=== PATIENT | male | born 1955 | race Caucasian/White ===

== ENCOUNTER 2022-04-09 09:17 | Outpatient (REF) | payer MEDICARE, SELFPAY ==
[2022-04-09 11:38] LABS: MANUAL DIFF FLAG NO
[2022-04-09 12:00] LABS: Basophils Percent Auto 0.2 % (0-2); Eosinophils Percent Auto 0.1 % (0-4); Hematocrit 45.3 % (42.0-52.0); Hemoglobin 15.4 g/dl (14.0-18.0); Imm Gran Abs Auto 0.08 X10*3/uL (0.00-0.03); Imm Gran Pct Auto 0.5 % (0.0-0.4); Lymphocytes Absolute Auto 1.4 X10*3/uL (1.2-4.9); Mean Corpuscular Hemoglobin 29.2 pg (27.0-33.0); Mean Platelet Volume 10.3 fL (9.4-12.4); Monocytes Absolute Auto 0.4 X10*3/uL (0.1-1.2); Monocytes Percent Auto 2.6 % (2-11); Neutrophils Absolute Auto 15.1 x10*3/uL (2.0-8.3); Neutrophils Percent Auto 88.6 % (45-73); Platelet Count 389 X10*3/uL (160-400); Red Blood Count 5.27 X10*6/uL (4.60-5.80); Red Cell Distribution Width 12.5 % (11.0-16.0)
[2022-04-11 04:57] LABS: Lyme Abs Screen <0.90 index
== END 2022-04-09 09:18 | disposition home or self-care (01) ==
LOC: HO.HMGCLDS 09:17
PROVIDERS: PCP Family Medicine; Visit Provider Physician Assistant
DX: A69.20 Lyme disease, unspecified (principal)
CPT/HCPCS: 36415; 85025; 86617; 86618

== ENCOUNTER 2023-09-17 09:31 | Outpatient (REF) | payer OTHER, SELFPAY ==
[2023-09-17 11:57] LABS: Hematocrit 44.2 % (42.0-52.0); Hemoglobin 14.9 g/dl (14.0-18.0); Mean Corpuscular HGB Conc 33.7 g/dl (31.0-36.0); Mean Corpuscular Hemoglobin 29.1 pg (27.0-33.0); Mean Corpuscular Volume 86.3 fL (80.0-98.0); Mean Platelet Volume 10.3 fL (9.4-12.4); Platelet Count 352 X10*3/uL (160-400); Red Blood Count 5.12 X10*6/uL (4.60-5.80); Red Cell Distribution Width 12.3 % (11.0-16.0); White Blood Count 9.6 X10*3/uL (4.8-10.8)
[2023-09-17 12:08] LABS: Estimated Average Glucose 123 mg/dL; Hemoglobin A1c % 5.9 % (<6.0)
[2023-09-17 13:19] LABS: Creatinine Urine 229.76 mg/dL; Microalbum/Creatinine Ratio Ur 7.8 ug/mg cr (<30)
[2023-09-17 15:51] LABS: Alanine Aminotransferase 23 U/L (0-40); Albumin Level 4.2 g/dL (3.5-5.0); Alkaline Phosphatase 94 U/L (39-117); Anion Gap 13 (12-20); Aspartate Amino Transferase 17 U/L (5-37); Bilirubin Direct 0.3 mg/dL (0.0-0.5); Bilirubin Total 0.6 mg/dL (0.0-1.0); Blood Urea Nitrogen 16 mg/dL (9-16); Calcium 9.6 mg/dL (8.4-10.2); Carbon Dioxide 27 mmol/L (22-29); Chloride 102 mmol/L (96-108); Cholesterol 171 mg/dL (<200); Estimated Glomerular Filt Rate > 60; Glucose Random 113 mg/dL (60-115); HDL Cholesterol 38 mg/dL (>40); LDL Cholesterol Calculated 116 mg/dL (<100); Potassium 4.4 mmol/L (3.3-5.1); Sodium 138 mmol/L (135-145); Total Protein 7.8 g/dL (6.5-8.0); Triglycerides 87 mg/dL (<150)
[2023-09-17 16:09] LABS: Free T4 (Free Thyroxine) 0.92 ng/dL (0.71-1.85); Vitamin D 25-OH Total 38.8 ng/mL (>30)
== END 2023-09-17 09:32 | disposition home or self-care (01) ==
LOC: HO.HHCL 09:31
PROVIDERS: Visit Provider Family Medicine
DX: I10 Essential (primary) hypertension (principal)
CPT/HCPCS: 36415; 80048; 80061; 80076; 82043; 82306; 82570; 83036; 84439; 84443; 85027

== ENCOUNTER 2023-12-25 09:14 | Outpatient (REF) | payer OTHER, SELFPAY ==
--- NOTE | ~2023-12-25 | US_ITS ---
EXAMINATION: US RETROPERITONEAL LIMITED (AORTA) CLINICAL INFORMATION: Personal history of nicotine dependence. COMPARISON: None available. TECHNIQUE: Kumar-scale, color Doppler and spectral Doppler evaluation of the abdominal aorta. FINDINGS: The aorta is normal. The measurements of the aorta in maximum AP and transverse dimensions respectively are as follows: Proximal: 2.6 x 2.5 cm. Mid: 1.8 x 1.8 cm. Distal: 1.6 x 1.7 cm. PSV: 79 cm/s. The measurements of the common iliac arteries in maximum AP and TRV dimensions are as follows: Right: AP: 1.1 cm. TRV: 1.1 cm. Left: AP: 1.2 cm. TRV: 1.1 cm. US/US aorta IMPRESSION: Negative for abdominal aortic aneurysm.
== END 2023-12-25 09:15 | disposition home or self-care (01) ==
LOC: HO.US 09:14
PROVIDERS: PCP Family Medicine; Visit Provider Family Medicine
DX: Z13.6 Encounter for screening for cardiovascular disorders (principal); Z87.891 Personal history of nicotine dependence
CPT/HCPCS: 76775

== ENCOUNTER 2024-10-28 09:53 | Outpatient (REF) | payer MEDICARE, SELFPAY ==
--- NOTE | ~2024-10-28 | XR_ITS ---
EXAMINATION: Pre-MRI orbits. CLINICAL INDICATION: History of metal fragments in eyes. COMPARISON: None. FINDINGS: There are 3 disc images of the orbits revealing no radiopaque metallic foreign body in the orbits. The visualized maxillofacial, orbital and nasal bones appear unremarkable. XR/XR pre mri screening IMPRESSION: No radiopaque metallic foreign body seen in the orbits. Electronically signed by: Scot Mcgrath MD 10/28/2024 10:37 AM MIREYA
--- OUTSIDE RECORDS SUMMARY | 2024-10-28 11:43 | XMS_ITS | Encounter Summary ---
Author Organization [employer] Address [address] [facility] 7t [place] [address] Care Team Providers Care Taker Off Braker Machine Name Role Phone Quyen Morfin DO Primary Care Provider + [phone] Reason for Visit * Reason Onset Date Comments Appointment Request 10/21/2023 Encounter Details Date Type Department Care Team ([facility] st Contact Info) Description 10/21/2023 Telephone [facility] MEDICINE [address] [place], [place] [phone] Quyen Morfin DO [address] [place], [place] [phone] Appointment Request Social History Tobacco Use Types Packs/Day Years Used Date Smoking Tobacco: Former Cigarettes Passive Smoke Exposure: Past Smokeless Tobacco: Never Alcohol Use Standard Drinks/Week Comments Never 0 (1 standard drink = 0.6 oz pur e alcohol) Depression Answer Date Recorded Patient Health Questionnaire-9 Score 0 10/30/2022 Housing Stability Answer Date Recorded What is your housing situation today? I have van tapia 07/06/[address] you li ve. Do you have problems with any of the following? None of the above 07/06/2023 Food Insecurity Answer Date Recorded Within the past 12 months, y ou worried that your food would run out before you got money to buy more: Never True 07/06/2023 Within the past 12 months,th e food you bought just didn't last and you didn't have enough money to get more: Never True 06/2023 Transportation Answer Date Recorded In the past 12 months, has l ack of transportation kept you from medical appts, meetings, work or from getting things needed for daily living? No 07/06/2023 Utilities Answer Date Recorded In the past 12 months, has t he electric, gas, oil or water company threatened to shut off services in your home? No 07/06/2023 Depression Answer Date Recorded Patient Health Questionnaire-2 Score 0 10/30/2022 Sex and Gender Information Value Date Recorded Sex Assigned at Male 06/25/2022 10:18 AM EDT Legal Sex Male 10:18 AM EDT Gender Identity Male 06/25/2022 10:18 AM EDT Sexual Orientation Straight 06/25/2022 10 :18 AM EDT documented as of this encounter Miscellaneous Notes * Telephone Encounter - Harmeet Hermosillo - 10/21/2023 3:23 PM EST Tc from pt spouse requesting a physical appt with provider to be scheduled back to back upon provider advise. Please contact pt Spouse @ [phone] documented in this encounter Plan of Treatment Not on file documented as of this encounter Visit Diagnoses Not on filedocumented in this encounter Additional Health Concerns Assessment Noted Time PHQ-9 Depression Total Score: 0 10/31/19 23 9:09 AM EST documented as of this encounter Care Teams Taker Off Braker Machine Relationship Specialty Start Date End Date Quyen Morfin DO [address] [place] [address] PCP - General Family Medicine 02/28/22 documented as of this encounter
--- OUTSIDE RECORDS SUMMARY | 2024-10-28 11:43 | XMS_ITS | Encounter Summary ---
Author Organization [employer] Address [address] [place] [address] 7t [place] [address] Care Team Providers Care Charge Account Identification Clerk Name Role Phone Quyen Morfin DO Primary Care Provider [phone] Reason for Referral * Imaging (Routine) - Authorized Specialty Diagnoses / Procedures Referred By Contac t Referred To Contact Radiology Diagnoses Tinnitus of both ears Procedures Mr Brain w/ and w/o Contrast Quyen Morfin DO [address] [place] [address] Phone: tel: fax: [address] Phone: tel: fax: Referral ID Status Reason Start Date Expiration Date V isits Requested Visits Authorized [id number] Authorized 10/04/2024 10/04/2025 1 1 Encounter Details Date Type Department Care Team (Late st Contact Info) Description 10/04/2024 Orders Only [facility] MEDICINE [address] [place], [place] [phone] Quyen Morfin DO [address] [place], [place] [phone] Tinnitus of both ears (Primary Dx) Social History Tobacco Use Types Packs/Day Years Used Date Smoking Tobacco: Former Cigarettes Passive Smoke Exposure: Past Smokeless Tobacco: Never Alcohol Use Standard Drinks/Week Comments Never 0 (1 standard drink = 0.6 oz pur e alcohol) Depression Answer Date Recorded Patient Health Questionnaire-9 Score 0 09/15/2024 Patient Health Questionnaire-9 Score 0 09/15/2024 Last PHQ-9: Questionnaire Data Not on file 0 09/15/2024 Housing Stability Answer Date Recorded What is your housing situation today? I have van tapia 08/13/[address] you li ve. Do you have problems with any of the following? None of the above 08/13/2024 Food Insecurity Answer Date Recorded Within the past 12 months, y ou worried that your food would run out before you got money to buy more: Never True 08/13/2024 Within the past 12 months,th e food you bought just didn't last and you didn't have enough money to get more: Never True Transportation Answer Date Recorded In the past 12 months, has l ack of transportation kept you from medical appts, meetings, work or from getting things needed for daily living? No 08/13/2024 Utilities Answer Date Recorded In the past 12 months, has t he electric, gas, oil or water company threatened to shut off services in your home? No 08/13/2024 Depression Answer Date Recorded Patient Health Questionnaire-2 Score 0 09/15/2024 Internet Access Answer Date Recorded Internet Access Q1 Yes 08/13/2024 Internet Access Q2 Not on file 08/13/2024 Sex and Gender Information Value Date Recorded Sex Assigned at Male 06/25/2022 10:18 AM EDT Legal Sex Male 10:18 AM EDT Gender Identity Male 06/25/2022 10:18 AM EDT Sexual Orientation Straight 06/25/2022 10 :18 AM EDT documented as of this encounter Plan of Treatment Scheduled Orders Name Type Priority Associated Diagnoses Orde r Schedule Mr Brain w/ and w/o Contrast Imaging Routine Tinnitus of both ears Expected: 10/04/2024, Expires: 10/04/2025 documented as of this encounter Procedures Procedure Name Priority Date/Time Associated Diagnosis Comments XR PRE MRI SCREENING Routine 10/28/2024 10:25 AM EST documented in this encounter Results * XR PRE MRI SCREENING (10/28/2024 10:25 AM EST) Anatomical Region Laterality Modality Abdomen Radiographic Ree ging 10/28/2024 10:2 5 AM EST Narrative 10/28/2024 10:41 AM EST ? [facility] ?[address] ?[place] [address] ?XRay Report ? Signed ? Patient: Bryden,Ti ?MR#: [id number] ? : 1955 ?Acct:[id number] ? Age/Sex: 69 / M ?ADM Date: 10/28/24 ? Loc: HO.XRAY ? Attending Dr: Kevin Workman MD ? Ordering Physician: Kevin Workman MD ?? Date of Service: 10/28/24 ?? Procedure(s): XR pre mri screening ?? Accession Number(s): [id number] ? cc: Kevin Workman MD; Quyen Morfin DO ? EXAMINATION: Pre-MRI orbits. ? CLINICAL INDICATION: History of metal fragments in eyes. ? COMPARISON: None. ? FINDINGS: There are 3 disc images of the orbits revealing no radiopaque ?? metallic foreign body in the orbits. The visualized maxillofacial, ?? orbital and nasal bones appear unremarkable. ? XR/XR pre mri screening ?? IMPRESSION: No radiopaque metallic foreign body seen in the orbits. ? Electronically signed by: ??Scot Mcgrath MD ??10/28/2024 10:37 AM EST RP ? Dictated By: ?Scot Mcgrath MD ? Signed By: ?<Electronically signed by Scot Mcgrath MD in OV> ?10/28/24 1037 ? DD/ 1025 ? TD/TT: 10/28/24 1025 ? Duty Manager: MSM ? Procedure Note Rosibel Sargent - 10/28/[address] [address] XRay Report Signed Patient: Ti RamosMR#: [id number] : 7Acct:[id number] Age/Sex: 69 / MADM Date: 10/28/24 Loc: PHI Attending Dr: Kevin Workman MD Ordering Physician: Kevin Workman MD Date of Service: 10/28/24 Procedure(s): XR pre mri screening Accession Number(s): [id number] cc: Kevin Workman MD; Quyen Morfin DO EXAMINATION: Pre-MRI orbits. CLINICAL INDICATION: History of metal fragments in eyes. COMPARISON: None. FINDINGS: There are 3 disc images of the orbits revealing no radiopaque metallic foreign body in the orbits. The visualized maxillofacial, orbital and nasal bones appear unremarkable. XR/XR pre mri screening IMPRESSION: No radiopaque metallic foreign body seen in the orbits. Electronically signed by: Scot Mcgrath MD 10/28/2024 10:37 AM EST RP Dictated By: Scot Mcgrath MD Signed By: <Electronically signed by Scot Mcgrath MD in OV> 10/28/24 1037 DD/ 1025 TD/TT: 10/28/24 1025 Duty Manager: KENNA [facility] External Provider IMG XR PROCEDURES Edited Result - Final documented in this encounter Visit Diagnoses Diagnosis Tinnitus of both ears- Primary Unspecified tinnitus documented in this encounter Additional Health Concerns Assessment Noted Time PHQ-9 Depression Total Score: 0 09/15/19 25 9:23 AM EST documented as of this encounter Care Teams Charge Account Identification Clerk Relationship Specialty Start Date End Date Quyen Morfin DO [address] [place] [address] PCP - General Family Medicine 02/28/22 documented as of this encounter
--- OUTSIDE RECORDS SUMMARY | 2024-10-28 11:43 | XMS_ITS | Encounter Summary ---
Author Organization [employer] Address [address] [facility] 7t [place] [address] Care Team Providers Care Miter Cutter Name Role Phone Quyen Morfin DO Primary Care Provider + [phone] Reason for Visit * Reason Onset Date Comments Med Refill 08/05/2023 Encounter Details Date Type Department Care Team (Late st Contact Info) Description 08/05/2023 Telephone [facility] MEDICINE [address] [place] [address] Quyen Morfin DO [address] [place], [place] [phone] Med Refill Social History Tobacco Use Types Packs/Day Years [...] encounter Miscellaneous Notes * Telephone Encounter - Quyen Pinedo LPN - 08/05/2023 9:40 AM EST Medications were sent to [facility] on 07/29/23 #90 with 3 refills. * Telephone Encounter - Fady Blankenship - 08/05/2023 9:26 AM EST Tc from pt's spouse requesting medication refill for amLODIPine (Norvasc) 5 MG tablet, atenolol (Tenormin) 50 MG tablet, and hydroCHLOROthiazide (HYDRODiuril) 25 MG tablet. documented in this encounter Plan of Treatment Not on file documented as of this encounter Visit Diagnoses Not on filedocumented in this encounter Additional Health Concerns Assessment Noted Time PHQ-9 Depression Total Score: 0 10/31/19 23 9:09 AM EST documented as of this encounter Care Teams Miter Cutter Relationship Specialty Start Date End Date Quyen Morfin DO [address] [place] [address] PCP - General Family Medicine 02/28/22 documented as of this encounter
--- OUTSIDE RECORDS SUMMARY | 2024-10-28 11:43 | XMS_ITS | Clinical Summary ---
Author Organization [employer] Address [address] [facility] 7t [place] [address] Care Team Providers Care Card Clothier Name Role Phone Quyen Morfin DO Primary Care Provider + [phone] Allergies Active Allergy Reactions Criticality Noted Date Comments Lisinopril Cough 09/15/2024 Medications Nirmatrelvir&Ri tonavir 300/100 (Paxlovid, 300/100,) 20 x 150 MG & 10 x 100MG tablet therapy packIndications :Infection caused by 2019 Novel Coronavirus Take 3 tablets by mouth 2 times daily. Take 2 tabs (300mg of nirmatrelvir) and 1 tab (100mg of ritonavir) PO BID for 5 days. No renal failure. Possible medication interactions reviewed. You may start the atorvastatin 3 days after stopping the Paxlov 30 each 3 Active atorvastatin (Lipitor) 20 MG tablet TAKE 1 TABLET BY MOUTH DAILY 90 tablet 3 4 Active hydroCHLOROthia zide (HYDRODiuril) 25 MG tablet TAKE 1 TABLET BY MOUTH EVERY DAY 90 tablet 3 4 Active atenolol (Tenormin) 50 MG tablet TAKE 1 TABLET BY MOUTH EVERY DAY 90 tablet 3 4 Active amLODIPine (Norvasc) 5 MG tablet TAKE 1 TABLET BY MOUTH EVERY DAY 90 tablet 3 5 Active Active Problems Problem Noted Date Diagnosed Date History of COVID-19 09/05/2023 BMI 35.0-35.9,adult 10/30/2022 Pre-diabetes 10/30/2022 Assessment & Plan (12/13/2023 1:45 PM EDT): A1c 5.9% AUG 2023 -reviewed results with pt and -continue dietary changes for prevention of DM History of tobacco use 10/30/2022 Assessment & Plan (12/13/2023 1:46 PM EDT): quit > 40 years ago -re-referred for AAA screening Healthcare maintenance 10/30/2022 Assessment & Plan (12/13/2023 1:43 PM EDT): -s/p flu vaccine APR 2023 -he declines COVID vaccine -s/p RSV vaccine Apr 2023 -s/p Tdap MAY 2014 -s/p pneumovax MAY 2017 -s/p prevnar February 2022 -s/p zoster vaccine Jun 2017 -s/p shingrix JUL 2019 -he declines colonoscopy, cologuard negative Mar 2022 -STI/HIV screening negative Apr 2022 Hyperlipidemia 06/13/2012 Assessment & Plan (12/13/2023 1:44 PM EDT): LDL at goal AUG 2023 -cont lipitor nightly Essential hypertension 06/13/2012 Assessment & Plan (12/13/2023 1:44 PM EDT): BP controlled -cont HCTZ, amlodipine, and atenolol daily -Cr/GFR and microalbumin nml AUG 2023 -s/p optho eval FEB 2023 at [facility] for annual f/u, will get copy of eval as still not in chart -refer for EKG next visit* Psoriasis 06/13/2012 Resolved Problems Problem Noted Date Diagnosed Date Resolved Date Outbursts of anger 10/30/2022 4 Encounters Date Type Department Care Team Description 10/04/2024 Orders Only [facility] MEDICINE [address] [place] [phone] Quyen Morfin DO Tinnitus of both ears (Primary Dx) 09/22/2024 9:30 AM EST Clinical Support [facility] MEDICINE [address] [place] [address] Betty Fonseca, ADA Impacted cerumen of both ears 09/16/2024 Telephone [facility] [address] [place] [address] Quyen Morfin DO 09/15/2024 9:00 AM EST Office Visit [address] [address] Quyen Morfin DO Essential hypertension (Primary Dx); Other hyperlipidemia; Pre-diabetes; Bilateral impacted cerumen; Tinnitus of both ears; Decreased hearing of both ears; Healthcare maintenance 09/15/2024 Travel 09/07/[address] [address] Quyen Morfin DO 09/03/2024 Patient Outreach [address] [address] Quyen Morfin DO Pre-visit Planning (SDOH screening completed on 08/13/2024) 08/18/2024 Patient Outreach [facility] [address] [place] [phone] Quyen Morfin DO Pre-visit Planning (SDOH was completed on 08/13/2024) 08/13/2024 Patient Outreach [address] [address] Quyen Morfin DO Pre-visit Planning (SDOH screening negative and tobacco screening negative) 08/04/[address] [address] [place], [place] July08/04/[address] [address] Quyen Morfin DO Med Refill 08/03/[address] [address] Quyen Morfin DO from Last 3 Months Immunizations Name Administration Dates Next Due INFLUENZA VACCINE QUADRIVALE NT RECOMBINANT PRESERVATIVE FREE RIV4 04/27/2020 Influenza High-dose Quadriva lent Preservative Free 05/30/2022 Influenza Quadrivalent Adjuvanted 05/09/2023 Influenza injectable quadriv alent IIV4 with preservative 05/13/2018,05/14/2017,05/16/2015 Influenza injectable quadriv alent preservative free 05/10/2021,05/29/2016 Influenza, High Dose Seasona l, Preservative Free 06/01/2024 Influenza, IIV3, injectable 06/03/2014 Influenza, Split (incl. tyler fied surface antigen) 05/13/2013,06/13/2012 Pneumococcal Conjugate PCV 13 03/02/2022 Pneumococcal Polysaccharide PPSV23 06/24/2017 RSV Adjuvant 05/09/2023 Tdap 06/23/2014 Zoster, Recombinant 07/28/2019,05/18/2019 Zoster, live 07/04/2017 Family History Medical History Relation Name Comments Diabetes Brother 1 Diabetes Brother 2 Diabetes Father Breast cancer Mother Asthma Sister Relation Name Status Comments Brother 1 Brother 2 Alive Father Mother Sister Social History Tobacco Use Types Packs/Day Years Used Date Smoking Tobacco: Former Cigarettes Passive Smoke Exposure: Past Smokeless Tobacco: Never Tobacco Cessation:Counseling Given: Not Answered Alcohol Use Standard Drinks/Week Comments Never 0 [...] Orientation Straight 06/25/2022 10 :18 AM EDT Last Filed Vital Signs Vital Sign Reading Time Taken Comments Blood Pressure 134/70 09/15/2024 9:20 AM EST Pulse 82 09/15/2024 9:20 AM EST Temperature 36.2 ??C (97.1 ??F) 09/15/2024 9:20 AM ES T Respiratory Rate 20 09/15/2024 9:20 AM EST Oxygen Saturation 98% 12/12/2023 9:16 AM EDT Inhaled Oxygen Concentration - - Weight 113 kg (250 lb) 09/15/2024 9:20 AM EST Height 180.3 cm (5' 11 ) 09/15/2024 9:20 AM EST Body Mass Index 34.87 09/15/2024 9:20 AM EST Plan of Treatment Health Maintenance Due Date Last Done Comments CT Colonography 1955 Colonoscopy 1955 Colorectal Cancer Screening 1955 FIT DNA/Cologuard 1955 FIT 1955 FOBT 1955 Sigmoidoscopy 1955 Hepatitis C Screening 1975 DTaP/Tdap/Td Vaccines (2 - Td or Tdap) 06/23/2024 06/23/2014 SDOH Screening 08/13/2025 08/13/2024 Alcohol/Substance Use Screening 09/15/2025 09/15/2024 Depression Screening 09/15/2025 09/15/2024, 09/15/19 25 Diabetes: Hemoglobin A1C 09/15/2025 025, 09/17/2023, 04/03/2022 Tobacco Screening 09/15/2025 09/15/2024 Pneumococcal Vaccine: 50+ Years (3 of 3 - PCV20 or PCV21) 03/02/2027 03/02/2022, 06/24/2017 Lipid Panel 09/17/2028 09/17/2023, 08/0 04/2022, 03/20/2021 Zoster Vaccines Completed 07/28/2019, 04/27, 07/04/2017 RSV Patients and Patients Aged 60 years or older Completed 05/09/2023 COVID-19 Vaccine Completed 05/08/2024, 12/2021, 12/22/2021, Additional history exists Influenza Vaccine Completed 06/01/2024, , 05/30/2022, Additional history exists HIB Vaccines Aged Out No longer eligi ble based on patient's age to complete this topic HPV Vaccines Aged Out No longer eligi ble based on patient's age to complete this topic Hepatitis A Vaccines Aged Out No long er eligible based on patient's age to complete this topic Hepatitis B Vaccines Aged Out No long er eligible based on patient's age to complete this topic IPV Vaccines Aged Out No longer eligi ble based on patient's age to complete this topic Meningococcal Vaccine Aged Out No maday joseph eligible based on patient's age to complete this topic RSV under 20 months Aged Out No longe r eligible based on patient's age to complete this topic Rotavirus Vaccines Aged Out No longer eligible based on patient's age to complete this topic Procedures Procedure Name Priority Date/Time Associated Diagnosis Comments XR PRE MRI SCREENING Routine 10/28/2024 10:25 AM EST GA REMOVAL IMPACTED CERUMEN IRRIGATION/LVG UNILAT Routine 09/15/2024 10:09 AM EST Bilateral impacted cerumen POCT GLYCATED HEMOGLOBIN, TOTAL Routine 09/15/2024 9:28 AM EST Essential hypertension Pre-diabetes POCT GLUCOSE Routine 09/15/2024 9:27 AM EST Essential hypertension Pre-diabetes LIPID PANEL, STANDARD Routine 09/17/2023 9:33 AM EST Essential hypertension from Last 3 Months or Most Recently Relevant to Health Maintenance Results * XR PRE MRI SCREENING (10/28/2024 10:25 AM EST) Anatomical Region Laterality Modality Abdomen Radiographic Ree ging 10/28/2024 10:2 5 AM EST Narrative 10/28/2024 10:41 AM EST ? [facility] ?[address] ?[place] [address] ?XRay Report ? Signed ? Patient: Bryden,Ti ?MR#: [id number] ? : 1955 ?Acct:[id number] ? Age/Sex: 69 / M ?ADM Date: 10/28/24 ? Loc: HO.XRAY ? Attending Dr: Kevin Workman MD ? Ordering Physician: Kevin Workman MD ?? Date of Service: 10/28/24 ?? Procedure(s): XR pre mri screening ?? Accession Number(s): [id number] ? cc: Kevin Workman MD; Quyen Morfin [...] ? Signed By: ?<Electronically signed by Scot Earl Mcgrath MD in OV> ?10/28/24 1037 ? DD/ 1025 ? TD/TT: 10/28/24 1025 ? Banking Supervisor: MSM ? Procedure Note Rosibel Sargent - 10/28/[address] [address] XRay Report Signed Patient: Ti RamosMR#: [id number] : 7Acct:[id number] Age/Sex: 69 / MADM Date: 10/28/24 Loc: PHI Attending Dr: Kevin Workman MD Ordering Physician: Kevin Workman MD Date of Service: 10/28/24 Procedure(s): XR pre mri screening Accession Number(s): [id number] cc: Kevin Workman MD; Quyen Morfin DO [...] 10/28/24 1037 DD/ 1025 TD/TT: 10/28/24 1025 Banking Supervisor: KENNA [facility] External Provider IMG XR PROCEDURES Edited Result - Final * GA REMOVAL IMPACTED CERUMEN IRRIGATION/LVG UNILAT (09/15/2024 10:09 AM EST) Narrative Shoaib Epperson, ADA - 09/15/2024 10:09 AM EST Shoaib Epperson RN ? 10/05/2024 12:22 AM Ear Cerumen Removal Date/Time: 09/15/2024 10:09 AM Performed by: Shoaib Epperson RN Authorized by: Quyen Morfin DO ?? Consent: ??Consent obtained: ??Verbal ??Consent given by: ??Patient ??Risks, benefits, and alternatives were discussed: yes ?Risks discussed: ??Dizziness, bleeding, incomplete removal, pain and TM perforation Yoder protocol: ??Procedure explained and questions answered to patient or proxy's satisfaction: yes ?Patient identity confirmed: ??Verbally with patient Procedure details: ??Location: ??L ear and R ear ??Procedure type: irrigation ?Procedure outcomes: unable to remove cerumen ?? Post-procedure details: ??Inspection: ??Some cerumen remaining ??Hearing quality: ??Improved ??Procedure completion: ??Tolerated well, no immediate complications Quyen Morfin DO IN CLINIC/BEDSIDE ORDERABLES Final Result * (ABNORMAL) POCT HGB A1C (09/15/2024 9:28 AM EST) Hemoglobin A1C 6.2(A) 4.0 - 6.0 % QC Media Lot # [id number] Lot# Expiration Date Blood 09/15/2024 9:28 AM EST Quyen Navjot DO POINT OF CARE TEST ENTER/SOFIYA T ORDERABLES Final Result * POCT Glucose (09/15/2024 9:27 AM EST) Glucose Blood, POC 124 60 - 200 mg/dL QC Media Lot # [id number] Lot# Expiration Date Blood Capillary blood specimen / Unknown 09/15/2024 9:27 AM EST Quyen Morfin DO POINT OF CARE TEST ENTER/SOFIYA T ORDERABLES Final Result * (ABNORMAL) Lipid Panel, Standard (09/17/2023 9:33 AM EST) Triglycerides 87 <150 mg/dL [facility] Comment:Desirable Triglyceri de: less than 150 mg/dLBorderline High Triglyceride 150-199 mg/dLHigh Triglyceride: 200-499 mg/dLVery High Triglyceride: greater than or equal to 5OO mg/dL Cholesterol 171 <200 mg/dL [facility] Comment:Desirable Cholestero l: less than 200 mg/dLBorderline High Cholesterol: 200-239 mg/dLHigh Cholesterol: greater than 239 mg/dL LDL Cholesterol Calculated 116(H) <100 mg/dL [facility] Comment:Desirable LDL: less than 100 mg/dLNear Optimal/Above Optimal LDL: 110- 129 mg/dLBorderline High LDL: 130-159 mg/dLHigh LDL: 160-189 mg/dLVery High LDL: greater than or equal to 190 mg/dL HDL Cholesterol 38(L) >40 mg/dL [facility] Comment:Desirable HDL: great er than 40 mg/dL Note: This HDL assay may give artificially low results in patients with liver disease. Blood Venous blood specimen / Unknown 09/17/2023 9:33 AM EST 09/17/2023 11:27 AM EST Quyen Morfin DO LAB BLOOD ORDERABLES Final R esult [facility] [address] [place] [address] [phone] from Last 3 Months or Most Recently Relevant to Health Maintenance Insurance [employer] PPO Care Teams Card Clothier Relationship Specialty Start Date End Date Quyen Morfin DO [address] [place] [id number] PCP - General Family Medicine 02/28/22
== END 2024-10-28 09:54 | disposition home or self-care (01) ==
LOC: HO.XRAY 09:53
PROVIDERS: PCP Family Medicine; Visit Provider Radiology Diagnostic Radiology
DX: Z13.89 Encounter for screening for other disorder (principal)

== ENCOUNTER → 2024-10-30 09:05 | Outpatient (BNV) | payer MEDICARE, SELFPAY | PROVIDERS: PCP Family Medicine; Visit Provider Radiology Diagnostic Radiology | DX: H93.13 Tinnitus, bilateral (principal) | CPT/HCPCS: 70553 ==

== ENCOUNTER 2024-10-30 09:06 | Outpatient (REF) | payer MEDICARE, SELFPAY ==
--- NOTE | ~2024-10-30 | MR_ITS ---
EXAMINATION: MR BRAIN WITHOUT THEN WITH IV CONTRAST HISTORY: WITH IACs, intermittent b/l tinnitus TECHNIQUE: Sagittal T1, and axial FLAIR, gradient echo, and diffusion weighted MR images of the brain were obtained. In addition, high resolution T2-weighted images were obtained through the internal auditory canals. Subsequently, axial and coronal T1-weighted images were obtained through the internal auditory canals before and after the administration of intravenous gadolinium. Whole brain postcontrast T1-weighted images were also obtained. And mL Gadavist was administered. COMPARISON: None FINDINGS: There is mild prominence of the ventricular system and cortical sulci, consistent with atrophy. A few scattered periventricular and subcortical white matter hyperintensities are noted on the FLAIR and T2-weighted images which are nonspecific, but often seen in the setting of small vessel ischemic disease. There is no mass effect or midline shift. No intra or extra-axial fluid collections are identified. There are no foci of restricted diffusion. The bilateral 7th and 8th nerve complexes are unremarkable in appearance without evidence of nodularity or abnormal contrast enhancement. No abnormal contrast enhancement is seen in the remainder of the brain. Normal vascular flow voids are noted in the basilar and carotid arteries. The visualized paranasal sinuses are clear. MR/MR head/brain wo/w con IMPRESSION: No acute intracranial abnormality. No evidence of a CP angle or internal auditory canal mass. Electronically signed by: Tad Perdomo MD 11/02/2024 08:55 AM EDT
[2024-10-30] MEDS: gadobutroL 10 ML VIAL IVPUSH (09:46)
== END 2024-10-30 09:07 | disposition home or self-care (01) ==
LOC: HO.MRI 09:06
PROVIDERS: PCP Family Medicine; Visit Provider Family Medicine
DX: H93.13 Tinnitus, bilateral (principal)
CPT/HCPCS: 70553; A9585